=== PATIENT | male | born 1960 | race Caucasian/White ===

== ENCOUNTER 2019-10-13 14:40 | Outpatient (CLI) | payer BC ==
--- NOTE | 2019-10-13 16:03 | Diagnostic Imaging Report ---
Indication: Foot pain Comparison: None Findings: 3 views of the left foot were obtained. No acute fractures, malalignment, erosions or periostitis are identified. Soft tissues are unremarkable. Impression: No acute findings
--- NOTE | 2019-10-13 16:03 | Diagnostic Imaging Report ---
Indication: left ankle pain Comparison: None Findings: 3 views of the left ankle obtained. Soft tissues are unremarkable. No acute fracture, malalignment, periostitis, or osteochondral defects are identified. Impression: No acute findings
--- NOTE | 2019-10-13 16:04 | Diagnostic Imaging Report ---
Indications: Left hip pain Findings: Two views of the left hip were obtained. No acute fracture is demonstrated. Alignment of the hip is within normal limits. Soft tissues are unremarkable. Impression: Negative for acute injury.
== END 2019-10-13 16:40 | disposition home or self-care (01) ==
LOC: RAD 14:40
DX: M25.572 Pain in left ankle and joints of left foot (principal); M25.552 Pain in left hip; M79.672 Pain in left foot
CPT/HCPCS: 73502